=== PATIENT | female | born 2000 | race Caucasian/White ===

== ENCOUNTER 2018-02-19 16:42 | Emergency (ER) | payer OTHER ==
--- OUTSIDE RECORDS SUMMARY | 2018-02-19 16:48 | XMS REPORT | Continuity of Care Document ---
:2000 External Reference #:[id number] Author Name Negrita Ambrocio M.D. Address [address] [place] [address] Care Team Providers Name Role Phone Lizeth Wiggins MD Primary Care Physician Unavailable Payers Type Date Identification Numbers Payment Provider Subscriber Effective: 2013 Policy Number: [id number] Dougie Scruggs PayID: [id number] [address] [place] [address] Advance Directives Description No Information Available Problems Date Description Provider Status Onset: 03/08/2015 Derangement of knee Izabel Reeves M.D. Active Onset: 07/07/2015 Primary dysmenorrhea Izabel Reeves M.D. Active Onset: 07/07/2015 Excessive and frequent menstruation Izabel Reeves M.D. Active Family History Date Family Member(s) Problem(s) Comments Father Blood Pressure Elevated Without Hypertension Mother No Current Problems Mother Good Health Maternal Grandfather Blood Pressure Elevated Without Hypertension Maternal Grandfather Heart Disease Maternal Grandmother Blood Pressure Elevated Without Hypertension Social History Type Date Description Comments Sex Unknown Lives With Mother And Father Lives With Older brother Home Environment Lives in an old house Smoke-Free Home is smoke-free Pets None ETOH Use Never used alcohol ETOH Use Denies alcohol use Tobacco Use Start: Unknown Patient has never smoked Recreational Drug Use Denies Drug Use Smoking Status Reviewed: 02/12/18 Patient has never smoked Guns in Home No Father's Occupation Currently Working [employer] Mother's Occupation Homemaker Parental Marital Status Parents Allergies, Adverse Reactions, Alerts Date Description Reaction Status Severity Comments 03/02/2014 Amoxicillin Urticaria Active Severe 04/24/2014 Penicillins Rash Active Severe Medications Medication Date Status Form Strength Qnty SIG Indications Ordering Provider Cefdinir 02/12/ Active Capsules 300mg 20caps 1 cap by J01.10 Negrita 2018 mouth Uphoff, twice a M.D. day No Active 02/12/ Hx Unknown Medications 2017 - 2017 No Active 10/25/ Hx Unknown Medications 2017 - 2017 Fluconazole 10/25/ Hx Tablets 150mg 2tabs 1 tab by N76.0 Jodie 2017 - mouth [place], [employer] 02/11/ once; september 2017 repeat in 7-10 days if necessary Clotrimazole 10/25/ Hx Cream 1% QS apply to N76.0 Jodie 2017 - affected [place], [employer] 02/11/ area three 2018 times a day for about 14 days No Active 09/18/ Hx Unknown Medications 2017 - 2017 Cefdinir 09/18/ Hx Capsules 300mg 20caps 1 cap by J03.90 Negrita 2017 - mouth [place], 09/28/ twice a M.D. 2017 day No Active 08/20/ Hx Unknown Medications 2017 - 2017 Ammonium 12/05/ Hx Cream 12% 140gm Apply thin L85.8 Lizeth Lactate 2016 - layer [place], 03/13/ daily to 2016 affected skin Sprintec 28 07/06/ Hx Tablets 0.25-35mg- 1pak 1 by mouth N94.4 Carter 2016 - mcg every day Sned[place], 08/19/ M.D. 2017 No Active 05/04/ Hx Unknown Medications 2013 - 2015 Cefdinir 04/24/ Hx Capsules 300mg QS 1 cap by 461.8 Carter 2013 - mouth [place]ned[place], 05/04/ twice a M.D. 2013 day x 10 days No Active 03/02/ Hx Unknown Medications 2013 - 2013 Motrin Ib / Hx Tablets 200mg 2 tabs at Unknown 0000 - 7:30 am 2018 Medications Administered in Office Medication Date Status Form Strength Qnty SIG Indications Ordering Provider Immunization 08/20/ Administered Injection Lizeth Administration 2018 Feliciano Mcgee MD Combination Immunization 03/14/ Administered Injection Pura Administration 2015 Krystle Pacheco Or RPA-C Combination Immunization 11/02/ Administered Injection Pura Administration 2015 Pacheco, Single Or RPA-C Combination Immunization 03/08/ Administered Injection Izabel Administration 2014 Krystle Reeves Or M.DTawnya Combination Immunization 03/02/ Administered Injection Izabel Administration 2013 Krystle Reeves Or Alejandro Combination Immunizations CPT Code Status Date Vaccine Lot # [id number] Given 10/25/2017 Gardasil 9 Valent [id number] 09497 Given 08/20/2017 Gardasil 9 Valent [id number] 79621 Given 03/14/2016 Flu Quadrivalent [id number] 74147 Given 11/03/2015 Meningococcal Conjugate Vaccine (Menveo) [id number] 80912 Given 03/08/2015 Flumist [id number] 38604 Given 03/02/2014 Flumist [id number] 04020 Given 02/25/2013 Influenza Virus Vaccine, Split Virus, 6-35 Months Age Intramuscul 68503 Given 12/20/2011 Hepatitis A Pediatric 61254 Given 10/23/2010 Hepatitis B Vaccine Pediatric/Adolescent 14633 Given 07/25/2010 Hepatitis A Pediatric 64816 Given 07/25/2009 Menactra 22185 Given 07/25/2009 Tdap 31601 Given 04/11/2007 Varicella (Chicken Pox) Vaccine 83407 Given 09/27/2003 DTaP Vaccine Younger Than 7 14443 Given 09/27/2003 MMR Vaccine, Live, For Subcutaneous Use 31479 Given 09/27/2003 Polio Injectable 60149 Given 12/28/1999 DTaP Vaccine Younger Than 7 16821 Given 05/15/1999 Varicella (Chicken Pox) Vaccine 42079 Given 05/15/1999 MMR Vaccine, Live, For Subcutaneous Use 48609 Given 1998 Polio Injectable 47259 Given 1998 DTaP Vaccine Younger Than 7 83671 Given 1998 Hib Vaccine 37683 Given 1998 Hib Vaccine 33311 Given 1998 DTaP Vaccine Younger Than 7 75016 Given 1998 Polio Injectable 71680 Given 1998 Polio Injectable 39214 Given 1998 DTaP Vaccine Younger Than 7 67968 Given 1998 Rotateq 57524 Given 1998 Hib Vaccine 38034 Given 2000 Hepatitis B Vaccine Pediatric/Adolescent 17810 Given 1998 Hepatitis B Vaccine Pediatric/Adolescent Vital Signs Date Vital Result Comment 02/12/2018 3:20pm Body Temperature 98.2 F Heart Rate 91 /min Respiratory Rate 12 /min BP Systolic 130 mmHg BP Diastolic 84 mmHg Weight 132.56 lb Weight 60.130 kg Height 64 inches 5'4" BMI (Body Mass Index) 22.8 kg/m2 Body Mass Index Percentile 62 % Height Percentile 45 % Weight Percentile 58th 10/25/2017 1:54pm Body Temperature 98.4 F Heart Rate 89 /min Respiratory Rate 12 /min BP Systolic 128 mmHg BP Diastolic 81 mmHg Weight 132.38 lb Weight 60.045 kg Height 64 inches 5'4" BMI (Body Mass Index) 22.7 kg/m2 Body Mass Index Percentile 62 % Height Percentile 45 % Weight Percentile 59th 09/24/2017 10:18am Body Temperature 99.0 F Heart Rate 86 /min Respiratory Rate 12 /min BP Systolic 124 mmHg BP Diastolic 84 mmHg Weight 130.56 lb Weight 59.223 kg Height 64 inches 5'4" BMI (Body Mass Index) 22.4 kg/m2 Body Mass Index Percentile 59 % Height Percentile 45 % Weight Percentile 56th 09/18/2017 8:28am Body Temperature 98.3 F Heart Rate 77 /min Respiratory Rate 12 /min BP Systolic 129 mmHg BP Diastolic 85 mmHg Weight 132.00 lb Weight 59.875 kg Height 64 inches 5'4" BMI (Body Mass Index) 22.7 kg/m2 Body Mass Index Percentile 62 % Height Percentile 45 % Weight Percentile 58th 09/17/2017 8:33am Body Temperature 98.9 F Heart Rate 101 /min Respiratory Rate 12 /min BP Systolic 140 mmHg BP Diastolic 92 mmHg BP Systolic Recheck 139 mmHg BP Diastolic Recheck 81 mmHg Weight 130.69 lb Weight 59.280 kg Height 64 inches 5'4" BMI (Body Mass Index) 22.4 kg/m2 Body Mass Index Percentile 59 % Height Percentile 46 % Weight Percentile 56th 08/20/2017 2:56pm Body Temperature 99.4 F Heart Rate 80 /min Respiratory Rate 12 /min BP Systolic 118 mmHg BP Diastolic 76 mmHg BP Systolic Recheck 142 mmHg 138/99 BP Diastolic Recheck 90 mmHg 138/99 Weight 131.00 lb Weight 59.422 kg Height 64 inches 5'4" BMI (Body Mass Index) 22.5 kg/m2 Body Mass Index Percentile 60 % Height Percentile 46 % Weight Percentile 57th 03/14/2016 3:24pm Body Temperature 98.3 F Heart Rate 72 /min Respiratory Rate 12 /min BP Systolic 120 mmHg BP Diastolic 83 mmHg Blood Pressure Percentile 79 % Weight 139.06 lb Weight 63.079 kg Height 64 inches 5'4" BMI (Body Mass Index) 23.9 kg/m2 Body Mass Index Percentile 76 % Height Percentile 47 % Weight Percentile 75th 12/06/2015 2:15pm Body Temperature 100.0 F Heart Rate 69 /min Respiratory Rate 14 /min BP Systolic 137 mmHg BP Diastolic 75 mmHg Blood Pressure Percentile 0 % Weight 135.50 lb Weight 61.463 kg Weight Percentile 71st 11/03/2015 1:58pm Body Temperature 98.3 F Heart Rate 77 /min Respiratory Rate 14 /min BP Systolic 113 mmHg BP Diastolic 73 mmHg Blood Pressure Percentile 0 % Weight 131.88 lb Weight 59.819 kg Weight Percentile 66th 07/07/2015 3:43pm Body Temperature 98.1 F Heart Rate 60 /min Respiratory Rate 18 /min BP Systolic 118 mmHg BP Diastolic 60 mmHg Blood Pressure Percentile 0 % Weight 128.38 lb Weight 58.231 kg Weight Percentile 62nd 03/08/2015 3:33pm Body Temperature 97.7 F Heart Rate 72 /min Respiratory Rate 12 /min BP Systolic 103 mmHg BP Diastolic 67 mmHg Blood Pressure Percentile 20 % Weight 135.75 lb Weight 61.576 kg Height 64 inches 5'4" BMI (Body Mass Index) 23.3 kg/m2 Body Mass Index Percentile 75 % Height Percentile 48 % Weight Percentile 74th 04/24/2014 9:12am Body Temperature 98.3 F Heart Rate 60 /min Respiratory Rate 12 /min BP Systolic 122 mmHg BP Diastolic 68 mmHg Blood Pressure Percentile 84 % Weight 130.75 lb Weight 59.308 kg Height 64 inches 5'4" BMI (Body Mass Index) 22.4 kg/m2 Body Mass Index Percentile 72 % O2 % BldC Oximetry 100 % Height Percentile 50 % Weight Percentile 70th 03/02/2014 2:26pm Body Temperature 99.0 F Heart Rate 74 /min Respiratory Rate 12 /min BP Systolic 110 mmHg BP Diastolic 74 mmHg Blood Pressure Percentile 44 % Weight 137.50 lb Weight 62.370 kg Height 64 inches 5'4" BMI (Body Mass Index) 23.6 kg/m2 Body Mass Index Percentile 80 % Height Percentile 51 % Weight Percentile 78th 12/24/2013 12:00pm Heart Rate 67 /min Respiratory Rate 12 /min BP Systolic 116 mmHg BP Diastolic 68 mmHg Weight 136.12 lb Weight 61.738 kg 09/19/2013 12:00pm Heart Rate 72 /min Respiratory Rate 12 /min BP Systolic 100 mmHg BP Diastolic 70 mmHg Weight 135.75 lb Weight 61.575 kg 06/20/2013 11:00am Heart Rate 76 /min Respiratory Rate 16 /min BP Systolic 82 mmHg BP Diastolic 54 mmHg Weight 135.25 lb Weight 61.348 kg 02/25/2013 12:00pm Heart Rate 61 /min Respiratory Rate 14 /min BP Systolic 118 mmHg BP Diastolic 79 mmHg Weight 132.69 lb Weight 60.192 kg Height 63.75 inches 04/10/2012 11:00am Heart Rate 90 /min Respiratory Rate 12 /min BP Systolic 114 mmHg BP Diastolic 78 mmHg Weight 122.69 lb Weight 55.656 kg 12/20/2011 12:00pm Heart Rate 80 /min Respiratory Rate 20 /min BP Systolic 112 mmHg BP Diastolic 78 mmHg Weight 122.50 lb Weight 55.565 kg Height 63 inches 09/15/2011 12:00pm Heart Rate 60 /min Respiratory Rate 16 /min BP Systolic 102 mmHg BP Diastolic 66 mmHg Weight 118.25 lb Weight 53.637 kg 02/28/2011 12:00pm Heart Rate 68 /min Respiratory Rate 12 /min BP Systolic 111 mmHg BP Diastolic 64 mmHg Weight 108.81 lb Weight 49.351 kg 07/25/2010 12:00pm Heart Rate 67 /min Respiratory Rate 16 /min BP Systolic 109 mmHg BP Diastolic 77 mmHg Weight 97.69 lb Weight 44.316 kg Height 60.25 inches 05/11/2010 11:00am Heart Rate 131 /min Respiratory Rate 12 /min BP Systolic 122 mmHg BP Diastolic 83 mmHg Weight 92.38 lb Weight 41.912 kg 03/27/2010 11:00am Heart Rate 100 /min Respiratory Rate 12 /min BP Systolic 110 mmHg BP Diastolic 68 mmHg Weight 90.00 lb Weight 40.823 kg 03/23/2010 11:00am Heart Rate 120 /min Respiratory Rate 16 /min BP Systolic 96 mmHg BP Diastolic 56 mmHg Weight 92.75 lb Weight 42.071 kg 07/25/2009 12:00pm Heart Rate 80 /min Respiratory Rate 16 /min BP Systolic 108 mmHg BP Diastolic 72 mmHg Weight 82.25 lb Weight 37.308 kg Height 56.75 inches 07/19/2008 12:00pm Heart Rate 127 /min Respiratory Rate 20 /min BP Systolic 126 mmHg BP Diastolic 78 mmHg Weight 74.12 lb Weight 33.620 kg 04/11/2007 11:00am Heart Rate 84 /min Respiratory Rate 20 /min BP Systolic 96 mmHg BP Diastolic 60 mmHg Weight 64.00 lb Weight 29.030 kg Height 51 inches Results Test Date Facility Test Result H/L Range Note Laboratory test 10/25/2017 [facility] Gardnerella/Ye SEE RESULT [address] ast: [place] [address] Dna Laboratory test 09/18/2017 [facility] C Reactive 18.59 mg/L High < 5.00 2, [address] [place] [address] Comp Metabolic 09/18/2017 [facility] Sodium 137 mmol/L Low 139 -[address] [place] [address] Potassium 4.0 mmol/L 3.5-5.0 Chloride 104 mmol/L 101-111 Co2 Carbon Dioxide 26 mmol/L 22-32 Anion Gap 7 mmol/L 2-11 Glucose 74 mg/dL 70-100 Blood Urea Nitrogen 12 mg/dL 6-24 Creatinine 0.64 mg/dL 0.51-0.95 BUN/Creatinine Ratio 18.8 8-20 Calcium 9.5 mg/dL 8.6-10.3 Total Protein 7.3 g/dL 6.4-8.9 Albumin 4.5 g/dL 3.2-5.2 Globulin 2.8 g/dL 2-4 Albumin/Globulin Ratio 1.6 1-3 Total Bilirubin 2.10 mg/dL High 0.2-1.0 Alkaline Phosphatase 93 U/L 34-104 Alt 13 U/L 7-52 Ast 18 U/L 13-39 Egfr Non- 119.5 >60 Egfr 153.7 >60 4 CBC Auto Diff 09/18/2017 [facility] White Blood 11.2 10^3/uL High 3.5-10.[address] [place] [address] Red Blood Count 4.45 10^6/uL 4.0-5.4 Hemoglobin 13.2 g/dL 12.0-16.0 Hematocrit 39 % 35-47 Mean Corpuscular Volume 88 fL 80-97 Mean Corpuscular Hemoglobin 30 pg 27-31 Mean Corpuscular HGB Conc 34 g/dL 31-36 Red Cell Distribution Width 13 % 10.5-15 Platelet Count 240 10^3/uL 150-450 Mean Platelet Volume 8.4 um3 7.4-10.4 Abs Neutrophils 9.4 10^3/uL High 1.5-7.7 Abs Lymphocytes 1.1 10^3/uL 1.0-4.8 Abs Monocytes 0.6 10^3/uL 0-0.8 Abs Eosinophils 0 10^3/uL 0-0.6 Abs Basophils 0 10^3/uL 0-0.2 Abs Nucleated RBC 0 10^3/uL Granulocyte % 83.4 % High 38-83 Lymphocyte % 10.1 % Low 25-47 Monocyte % 5.8 % 0-7 Eosinophil % 0.4 % 0-6 Basophil % 0.3 % 0-2 Nucleated Red Blood Cells % 0 Laboratory test 09/18/2017 [facility] Monospot Negative Negative [address] [place] [address] Ray Peters 09/18/2017 [facility] Ebv Capsid Ag Negative Negative Comprehensive [address] [place] [address] Ebv Capsid Ag IgM Ab Negative Negative Ray-Peters Nuclear Antigen Negative Negative Ray-Peters Virus Interp See Comment 6 Laboratory test 09/18/2017 [facility] Culture Throat SEE RESULT [address] [place] [address] Laboratory test 09/17/2017 [facility] .Quick Strep neg finding [address] [place] [address] [phone] .CBC W/Auto 08/20/2017 [facility] White Blood 8.0 Differential [address] [place] [place] [address] CNT [phone] Absolute Lymphocytes 2.6 Absolute Monocytes 0.7 Absolute Neutrophils Auto CNT 4.7 Lymph% 32.0 [place]% Auto Count BLD 9.2 Neutrophil % 58.8 RBC Red Blood Count 4.90 Hemoglobin Blood 14.7 Hematocrit 46.1 MCV (Corpuscular Volume) 94.1 MCH (Corpuscular Hemoglobin) 30.0 MCHC (Corpuscular Hemog Conc) 31.9 RDW 12.5 Platelet Count Blood Auto CNT 284. MPV 8.6 .CBC W/Auto 03/14/2016 [facility] White Blood 7.[address] [place] [address] CNT [phone] Absolute Lymphocytes 2.9 Absolute Monocytes 0.7 Absolute Neutrophils Auto CNT 4.1 Lymph% 38.2 [place]% Auto Count BLD 9.1 Neutrophil % 52.7 RBC Red Blood Count 4.50 Hemoglobin Blood 14.2 Hematocrit 41.4 MCV (Corpuscular Volume) 92.1 MCH (Corpuscular Hemoglobin) 31.6 MCHC (Corpuscular Hemog Conc) 34.3 RDW 12.0 Platelet Count Blood Auto CNT 236. MPV 8.1 Laboratory test 07/07/2015 [facility] .Urine II negative finding [address] [place] [address] [phone] .CBC W/Auto 03/08/2015 [facility] White Blood 8.[address] [place] [address] CNT [phone] Absolute Lymphocytes 2.7 Absolute Monocytes 0.6 Absolute Neutrophils Auto CNT 5.3 Lymph% 31.1 [place]% Auto Count BLD 7.4 Neutrophil % 61.5 RBC Red Blood Count 4.60 Hemoglobin Blood 13.6 Hematocrit 41.4 MCV (Corpuscular Volume) 90.1 MCH (Corpuscular Hemoglobin) 29.6 MCHC (Corpuscular Hemog Conc) 32.9 RDW 13.3 Platelet Count Blood Auto CNT 276. MPV 8.1 Laboratory test 11/03/2014 [facility] (HCG) Negative Negative [address] [place] [address] Order 04/24/2014 [facility] Oximetry - 100% Pulse or Ear .CBC W/Auto 03/02/2014 [facility] White Blood 6.[address] [place] [address] CNT [phone] Absolute Lymphocytes 1.9 Absolute Monocytes 0.6 Absolute Neutrophils Auto CNT 4.1 Lymph% 29.1 [place]% Auto Count BLD 9.2 Neutrophil % 61.7 RBC Red Blood Count 4.75 Hemoglobin Blood 14.7 Hematocrit 42.8 MCV (Corpuscular Volume) 90.2 MCH (Corpuscular Hemoglobin) 30.9 MCHC (Corpuscular Hemog Conc) 34.3 RDW 12.5 Platelet Count Blood Auto CNT 263. MPV 8.4 Laboratory test 09/21/2013 [facility] Throat Culture Negative finding Laboratory test 09/19/2013 [facility] Group A negative finding Streptococcus Screen Laboratory test 06/22/2013 [facility] Throat Culture Negative finding Laboratory test 06/20/2013 [facility] Group A negative finding Streptococcus Screen Laboratory test 02/25/2013 [facility] Granulocytes # 5.2 1.5-8.0 finding Granulocytes (%) 56.7 38.0-83.0 Hematocrit 41.2 36.0-46.0 Hemoglobin 14.0 12.0-16.0 Lymphocytes # 3.0 1.2-5.2 Lymphocytes % 32.9 20.0-45.0 Mean Corpuscular Hemoglobin 29.6 26.0-34.0 Mean Corpuscular Hemoglobin Concent 34.0 31.0-37.0 Mean Platelet Volume 8.5 7.4-10.4 Monocytes # 1.0 High 0.0-0.8 Monocytes % 10.4 High 1.0-9.0 Platelet Count 307 x10.3/ul 150-350 Poc Mean Corpuscular Volume 87.2 78.0-102.0 Red Blood Count 4.73 3.90-5.10 Red Cell Distribution Width 13.4 10.5-15.0 White Blood Count 9.2 4.5-13.5 Laboratory test 04/11/2012 [facility] Throat Culture Negative finding Laboratory test 04/10/2012 [facility] Streptococcus negative finding Screen Laboratory test 12/20/2011 [facility] Cholesterol Ratio N/A finding (LDL/HDL) Granulocytes # 4.3 1.5-8.0 Granulocytes (%) 58.9 38.0-83.0 HDL Cholesterol 100 mg/dL 40-100 Hematocrit 43.5 36.0-46.0 Hemoglobin 14.2 12.0-16.0 LDL Cholesterol N/A 0-130 Lymphocytes # 2.5 1.2-5.2 Lymphocytes % 33.9 20.0-45.0 Mean Corpuscular Hemoglobin 29.3 26.0-34.0 Mean Corpuscular Hemoglobin Concent 32.6 31.0-37.0 Mean Platelet Volume 8.4 7.4-10.4 Monocytes # 0.5 0.0-0.8 Monocytes % 7.2 1.0-9.0 Non-HDL Cholesterol N/A 0-145 Platelet Count 272 x10.3/ul 150-350 Poc Mean Corpuscular Volume 89.8 78.0-102.0 Red Blood Count 4.84 3.90-5.10 Red Cell Distribution Width 13.1 10.5-15.0 Total Cholesterol 188 mg/dL 0-200 Triglycerides Level 120 mg/dL 0-130 White Blood Count 7.3 4.5-13.5 Laboratory test finding 07/25/2010 [facility] Granulocytes # 2.7 1.5-8.0 Granulocytes (%) 42.2 38.0-83.0 Hematocrit 43.4 36.0-46.0 Hemoglobin 14.3 12.0-16.0 Lymphocytes # 3.4 1.2-5.2 Lymphocytes % 51.8 High 20.0-45.0 Mean Corpuscular Hemoglobin 29.6 26.0-34.0 Mean Corpuscular Hemoglobin Concent 32.9 31.0-37.0 Mean Platelet Volume 7.7 7.4-10.4 Monocytes # 0.4 0.0-0.8 Monocytes % 6.0 1.0-9.0 Platelet Count 268. 150-350 Poc Mean Corpuscular Volume 89.9 78.0-102.0 Red Blood Count 4.83 3.90-5.10 Red Cell Distribution Width 13.8 10.5-15.0 White Blood Count 6.5 4.5-13.5 Laboratory test 07/19/2008 [facility] Influenza Virus positive finding Culture (Rapid) 1 SEE RESULT BELOW Name: DARIA SCRUGGS : [address]: Jodie Negron NP Acct: [id number] Unit: [id number] AGE: 17 Location: [facility] Re10/25/17 SEX: F Status: REG REF SPEC: [id number] WIN: 10/25/17-[address] [facility] [address]: Jodie Negron NP REQ: [id number] RECD: 10/25/17865 STATUS: COMP _ SOURCE: VAGINAL SPDESC: ORDERED: Shahab,Yeast DNA COMMENTS: [id number] Would you like to order Trichomonas Vaginalis testing? N Procedure Result Reported Site Gardnerella/Yeast: Vaginal DNA Final 10/26/17- 1409 ML Organism 1 Negative Gardnerella Organism 2 Negative Kaylyn The presence of G. vaginalis, although suggestive, is not diagnostic for bacterial vaginosis. Results should be interpreted in conjuction with other clinical and laboratory data available. Women with vaginal discharge should be evaluated for risk factors of cervicitis and pelvic inflammatory disease, toxic shock syndrome (S.aureus), and if present, evaluated for organisms not included in this assay such as N. gonorrhoeae, C. trachomatis, Mobiluncus, Mycoplasma and/or Prevotella. Mixed infections may occur. The performance of this test on patient specimens collected during or immediately after antimicrobial therapy is unknown. The presence or absence of Kaylyn species, or G. vaginalis cannot be used as a test for therapeutic success or failure. * [facility] - Main Lab . END OF REPORT DEPARTMENT OF PATHOLOGY, [address] [place] [address] Alli Henry M.D. Director [facility] # [id number] 2 THROAT CULTURE FOR UNUSUAL ORGANISMS--ARCANIBACTER, PURE GROUTH OF GROWTH B OR GROUP D STREP. PCS 3 Acute inflammation: >10.00 4 Because ethnic data is not always readily available, this report includes an eGFR for both -Americans and non- Americans. The National Kidney Disease Education Program (NKDEP) does not endorse the use of the MDRD equation for patients that are not between the ages of 18 and 70, are , have extremes of body size, muscle mass, or nutritional status, or are non- or non-. According to the National Kidney Foundation, irrespective of diagnosis, the stage of the disease is based on the level of kidney function: Stage Description GFR(mL/min/1.73 m(2)) 1 Kidney damage with normal or decreased GFR 90 2 Kidney damage with mild decrease in GFR 60-89 3 Moderate decrease in GFR 30-59 4 Severe decrease in GFR 15-29 5 Kidney failure <15 (or dialysis) 5 THROAT CULTURE FOR UNUSUAL ORGANISMS--ARCANIBACTER, PURE GROUTH OF GROWTH B OR GROUP D STREP. PCS FOR GABS IS NEGATIVE Would you like an EBV if Monospot is Negative?: Y 6 Results suggest no prior exposure to Ray-Peters Virus. However, a second serum specimen should be tested in 10-14 days if clinically indicated. ADDITIONAL INFORMATION In most populations, at least 90% of the adult population will have been infected with EBV sometime in the past and therefore, will be positive for anti-VCA/IgG and anti- EBNA. Antibodies to EBNA develop 6-8 weeks after primary infection and remain present for life. Presence of VCA/ IgM antibodies indicates recent primary infection with EBV. Test Performed by: [facility] [place] [facility] [address] [place] [address] 7 SEE RESULT BELOW Name: DARIA SCRUGGS : [address]: Negrita Ambrocio MD Acct: [id number] Unit: [id number] AGE: 17 Location: [facility] Re09/18/17 SEX: F Status: REG REF SPEC: [id number] WIN: 09/18/170855 [facility] DR: Negrita Ambrocio MD REQ: [id number] RECD: 09/18/171049 STATUS: COMP _ SOURCE: THROAT SPDESC: ORDERED: Throat Culture Procedure Result Reported Site Throat Culture Final 09/20/17- 1047 ML Organism 1 STREP GROUP C Quantity 3+ Organism 2 NORMAL MARY Quantity 2+ Throat cultures are clinically indicated to detect the presence of group A strep, arcanobacterium and yeast. In certain cases, predominating organisms will be reported. * [facility] - Main Lab . END OF REPORT DEPARTMENT OF PATHOLOGY, [address] [place] [address] Alli Henry M.D. Director [facility] # [id number] If is still suspected, please repeat test after 48 to 72 hours. This test detects intact HCG only and is indicated for the early detection of . Procedures Date Code Description Status 08/20/2017 31486 Vision Screening Completed 08/20/2017 41137 Admin Patient Focused Health Risk Assessment Instrument Completed 08/20/2017 53069 Brief Emotional/Behav Assessment W/ Scoring Doc Per Completed Standard Inst 08/20/2017 25693 Hearing Screen, Pure Tone, Air Completed 08/20/2017 27591 Collection Of Capillary Blood Specimen Completed 03/14/2016 65939 Vision Screening Completed 03/14/2016 53409 Hearing Screen, Pure Tone, Air Completed 03/14/2016 06270 Collection Of Capillary Blood Specimen Completed 03/08/2015 81031 Vision Screening Completed 03/08/2015 03058 Hearing Screen, Pure Tone, Air Completed 03/08/2015 41950 Collection Of Capillary Blood Specimen Completed 04/24/2014 36175 Pulse Oximetry Completed 03/02/2014 56565 Vision Screening Completed 03/02/2014 39092 Hearing Screen, Pure Tone, Air Completed 03/02/2014 30893 Collection Of Capillary Blood Specimen Completed Encounters Type Date Location Provider Dx Diagnosis Office Visit 02/12/2018 [facility] Negrita Ambrocio J01.10 Acute frontal 3:15p M.D. sinusitis, unspecified H69.90 Unspecified Eustachian tube disorder, unspecified ear Office Visit 10/25/2017 1:45p [facility] Jodie Negron NP N76.0 Acute vaginitis Office Visit 09/24/2017 9:45a [facility] Negrita J03.90 Acute tonsillitis, Alejandro Ambrocio unspecified Office Visit 09/18/2017 8:30a [facility] Negrita J03.90 Acute tonsillitis, Manolo Ambrocio. unspecified Office Visit 09/17/2017 8:30a [facility] Kayla Mackey J02.9 Acute pharyngitis, MTawnyaD. unspecified Office Visit 08/20/2017 2:45p [facility] Lizeth Z00.00 Encntr for general MD [place] adult medical exam w/o abnormal findings Z13.89 Encounter for screening for other disorder Z71.89 Other specified counseling Office Visit 03/14/2016 3:15p [facility] Pura Pacheco Z00.129 Encntr for routine RPA-C child health exam w/o abnormal findings Office Visit 12/06/2015 2:15p [facility] Lizeth L85.8 Other specified MD [place] epidermal thickening L72.3 Sebaceous cyst Office Visit 11/03/2015 1:45p [facility] Pura Pacheco N94.4 Primary dysmenorrhea RPA-C N92.0 Excessive and frequent menstruation with regular cycle Office Visit 07/07/2015 3:45p [facility] Izabel Reeves, N94.4 Primary M.D. dysmenorrhea N92.0 Excessive and frequent menstruation with regular cycle Office Visit 03/08/2015 3:15p [facility] Izabel Reeves, Z00.129 Encntr for M.D. routine child health exam w/o abnormal findings M23.611 Oth spon disrupt of anterior cruciate ligament of right knee Office Visit 04/24/2014 8:45a [facility] Pura Pacheco, 461.8 Sinusitis Acute RPA-C Other Office Visit 03/02/2014 2:30p [facility] Izabel Reeves, V20.2 Routine Infant Or M.D. Child Health Check V65.42 Counseling On Substance Use & Abuse Plan of Treatment Future Appointment(s):02/28/2018 3:45 pm - Nursing at [facility]08/22/2018 1: 30 pm - Lizeth Wiggins MD at [facility]02/12/2018 - Negrita Ambrocio M.D.J01.10 Acute frontal sinusitis, unspecifiedNew Medication:Cefdinir 300 mg - 1 cap by mouth twice a dayComments:If symptoms do not resolve over the next week , call and return for recheck.H69.90 Unspecified Eustachian tube disorder, unspecified ear
[2018-02-19 16:53] VITALS: BP 133/95
[2018-02-19] MEDS ORDERED: diPHENhydraMINE PO* 25 MG PO ONE (17:13)
[2018-02-19] MEDS ORDERED: Famotidine TAB* 20 MG PO ONE (17:13)
[2018-02-19] MEDS ORDERED: predniSONE TAB* 20 MG PO ONE (17:13)
--- NOTE | 2018-02-19 17:23 | UC ---
Skin Complaint HPI - HPI Summary HPI Summary: 17-year-old female with history of recurrent sore throat presents with itchy rash that began this morning. She has been on Ceftin near for one week for upper respiratory complaint. She also has history of allergy to penicillins. She denies any lip or tongue swelling and no difficulty swallowing. She has not had any wheezing or shortness of breath. She does not feel weak, lightheaded. No history for anaphylaxis. - History of Current Complaint Chief Complaint: UCRash Time Seen by Provider: 02/19/18 17:05 Stated Complaint: RASHES Hx Obtained From: Patient, Family/Cco Hx Last Menstrual Period: 2 wks ago Pain Intensity: 0 - Allergy/Home Medications Allergies/Adverse Reactions: Allergies Allergy/AdvReac Type Severity Reaction Status Date / Time Cephalosporins Allergy Rash Verified 02/19/18 16:54 Penicillins Allergy Hives Verified 02/19/18 16:54 Review of Systems Constitutional: Negative Skin: Rash, Other - itching ENT: Sore Throat Respiratory: Negative Cardiovascular: Negative Musculoskeletal: Negative All Other Systems Reviewed And Are Negative: Yes PMH/Surg Hx/FS Hx/Imm Hx Previously Healthy: Yes - recurrent sore throat - Surgical History Surgical History: Yes Surgery Procedure, Year, and Place: 2001 ORIF LEFT HUMERUS- [place]. ACL - Family History Known Family History: Positive: Other - no recent sick contacts, no hx of anaphalaxis - Social History Occupation: Student Alcohol Use: None Substance Use Type: None Smoking Status (MU): Never Smoked Tobacco Have You Smoked in the Last Year: No Physical Exam Triage Information Reviewed: Yes Appearance: Well-Appearing, No Pain Distress, Well-Nourished Vital Signs: Initial Vital Signs Temp 97.6 F 02/19/18 16:51 Pulse 63 02/19/18 16:51 Resp 18 02/19/18 16:51 BP 133/95 02/19/18 16:51 Pulse Ox 100 02/19/18 16:51 Eye Exam: Normal Eyes: Positive: Conjunctiva Clear ENT: Positive: Tonsillar exudate - L, Other - Right tympanic membrane obscured by cerumen. Negative: Nasal congestion, Nasal drainage, Tonsillar swelling Neck: Positive: Supple, No Lymphadenopathy Respiratory: Positive: Chest non-tender, Lungs clear Cardiovascular: Positive: RRR Musculoskeletal Exam: Normal Skin: Positive: rashes, Other - diffuse urticaria, no pharyngeal lesions or swelling Course/Dx - Course Course Of Treatment: Patient with drug-induced urticaria without anaphylaxis. Discontinue medication. Given H1, H2 nik and steroid here. Continue same outpatient. Avoid penicillins and cephalosporins. - Differential Diagnoses - Skin Complaint Differential Diagnoses: Drug Rash, Shabazz-Reddy Syndrome, Urticaria - Diagnoses Provider Diagnoses: Drug allergy to cephalosporin. Urticaria. Cerumen impaction right ear Discharge - Sign-Out/Discharge Documenting (check all that apply): Patient Departure All imaging exams completed and their final reports reviewed: No Studies - Discharge Plan Condition: Improved Disposition: HOME Prescriptions: Famotidine TAB* [Pepcid 20 MG TAB*] 20 mg PO BID PRN #10 tab PRN Reason: rash/itching predniSONE TAB* [Deltasone TAB*] 50 mg PO DAILY #3 tab Patient Education Materials: Antibiotic Medication Allergy (ED) Referrals: Lizeth Wiggins MD [Primary Care Provider] - Additional Instructions: Discontinue cefdinir. You're allergic to cephalosporins. Make sure your doctor is made aware of this. Benadryl for itching, rash. Return with difficulty breathing, wheezing, lip/tongue swelling, worse or other concerns. Your doctor can also do viral testing when you have symptoms similar to what you were given the antibiotic for. - Billing Disposition and Condition Condition: IMPROVED Disposition: Home - Attestation Statements Document Initiated by Reuben: No
== END 2018-02-19 17:43 | disposition home or self-care (01) ==
LOC: UCEAST 16:42
DX: L50.0 Allergic urticaria (principal); T36.1X5A Adverse effect of cephalosporins and other beta-lactam antibiotics, initial encounter; Y92.9 Unspecified place or not applicable; H61.21 Impacted cerumen, right ear; Z88.0 Allergy status to penicillin
CPT/HCPCS: 99212; A9270-GY; G0463; J7512